=== PATIENT | male | born 1955 ===

== ENCOUNTER 2017-03-27 00:29 | Emergency (ER) | payer OTHER ==
[2017-03-27 00:40] VITALS: TEMP 97.7; O2SAT 99
--- NOTE | 2017-03-27 01:21 | C.PDOC ---
History Of Present Illness Patient presents to the ER states that he feels his blood pressure is high and reports a buzzing sound in his ear. Denies vision change, nausea or vomiting. Time Seen by Provider: 03/27/17 01:21 Chief Complaint (Nursing): High Blood Pressure History Per: Patient History/Exam Limitations: no limitations Onset/Duration Of Symptoms: Hrs Current Symptoms Are (Timing): Still Present Associated Symptoms: denies: Blurred Vision Quality Of Symptoms: No Rhythm Irregularity Severity: None Pain Scale Rating Of: 0 Exacerbating Factor(s): Pos: None Recent travel outside of the [place]: No Past Medical History Reviewed: Historical Data, Nursing Documentation, Vital Signs Vital Signs: Last Vital Signs Temp 97.7 F 03/27/17 00:32 Pulse 63 03/27/17 00:32 Resp 16 03/27/17 00:32 BP 137/83 03/27/17 00:32 Pulse Ox 99 03/27/17 01:42 - Medical History PMH: Anxiety, Fractures, HTN, Kidney Stones Surgical History: No Surg Hx Family History: States: No Known Family Hx - Social History Hx Alcohol Use: No Hx Substance Use: No - Immunization History Hx Tetanus Toxoid Vaccination: No Hx Influenza Vaccination: Yes Hx Pneumococcal Vaccination: No Review Of Systems Eyes: Negative for: Vision Change Respiratory: Negative for: Shortness of Breath Gastrointestinal: Negative for: Nausea, Vomiting Musculoskeletal: Negative for: Back Pain Skin: Negative for: Rash, Lesions, Jaundice, Bruising Neurological: Positive for: Dizziness. Negative for: Weakness Psych: Negative for: Anxiety Physical Exam - Physical Exam Appears: Non-toxic Skin: Warm, Dry Eye(s): bilateral: Normal Inspection, PERRL, EOMI Ear(s): Bilateral: Normal Oral Mucosa: Moist Chest: Symmetrical, No Tenderness Cardiovascular: Rhythm Regular, No Murmur Respiratory: No Rales, No Rhonchi, No Wheezing Gastrointestinal/Abdominal: Soft, No Tenderness Extremity: Normal ROM Extremity: Bilateral: Atraumatic, Normal Color And Temperature Neurological/Psych: Oriented x3, Normal Speech, Normal Cognition, Normal Motor, Normal Sensation, Normal Reflexes, No Romberg Gait: Steady ED Course And Treatment O2 Sat by Pulse Oximetry: 99 (Room air) Pulse Ox Interpretation: Normal Progress Note: Head CT w/o contrast ordered. Reevaluation Time: 02:09 Reassessment Condition: Improved Disposition Counseled Patient/Family Regarding: Studies Performed, Diagnosis, Need For Followup, Rx Given - Disposition Referrals: Sandra Lopez DO [Resident] - Boo Townsend MD [Staff Provider] - Ata Humphries MD [Staff Provider] - Disposition: HOME/ ROUTINE Disposition Time: 01:21 Condition: FAIR Prescriptions: Meclizine [Antivert] 25 mg PO TID #25 tab Instructions: Dizziness (ED), Tinnitus (ED) Print Language: SETSWANA - Clinical Impression Clinical Impression: Tinnitus, Dizziness - Scribe Statement The provider has reviewed the documentation as recorded by the Scribe Reed Briceno All medical record entries made by the Andriyibe were at my direction and personally dictated by me. I have reviewed the chart and agree that the record accurately reflects my personal performance of the history, physical exam, medical decision making, and the department course for this patient. I have also personally directed, reviewed, and agree with the discharge instructions and disposition.
--- NOTE | 2017-03-27 01:59 | CT ---
EXAM: CT Head Without Intravenous Contrast CLINICAL HISTORY: 62 years old, male; Pain; Headache; Patient HX: 10-06-15; Additional info: Dizziness, tinnitus TECHNIQUE: Axial computed tomography images of the head/brain without intravenous contrast. This CT exam was performed using one or more of the following dose reduction techniques: automated exposure control, adjustment of the mA and/or kV according to patient size, and/or use of iterative reconstruction technique. COMPARISON: CT - HEAD W/O CONTRAST 10/06/2015 10:58:29 AM FINDINGS: Brain: There is no evidence of intracranial hemorrhage. There is mild diminished density of the white matter bilaterally, consistent with mild microangiopathy. No evidence of acute territorial infarction. There is mild prominence of ventricles and sulci, compatible with mild atrophy. No edema. Ventricles: See above. Bones/joints: Unremarkable. No acute fracture. Soft tissues: Unremarkable. Sinuses: Unremarkable as visualized. No acute sinusitis. Mastoid air cells: Unremarkable as visualized. No mastoid effusion. IMPRESSION: 1. No evidence for acute intracranial abnormality or displaced calvarial fracture. 2. Additional incidental and/or chronic findings as described.
[2017-03-27 02:16] VITALS: BP 136/87; PULSE 72; RESP 18
== END 2017-03-27 02:17 | disposition home or self-care (01) ==
LOC: C.ER 00:29
DX: H93.19 Tinnitus, unspecified ear (principal); R42 Dizziness and giddiness